=== PATIENT | female | born 1960 | race Caucasian/White ===

== ENCOUNTER 2020-11-18 21:37 | Emergency (ER) | payer MEDICAID, OTHER ==
[~2020-11-18] VITALS: Ht 154.9 cm; Wt 69.4 kg
[~2020-11-18 21:37] MED LIST: CEPH250C16 PO
[2020-11-18 22:07] VITALS: BP 121/77
--- NOTE | 2020-11-18 22:10 | NUR ---
TO LOBBY A/W BED AMBULATORY
--- NOTE | 2020-11-18 22:23 | NUR ---
PT TAKEN TO BED 9
--- NOTE | 2020-11-18 22:25 | NUR ---
Dr. Martinez examining patient.
[2020-11-18] MEDS ORDERED: [UNRECOGNIZED DRUG - CODE] PO (22:28)
--- NOTE | 2020-11-18 22:32 | NUR ---
seen by BENNIE no nursing interventions needed
--- NOTE | 2020-11-18 22:32 | NUR ---
Patient discharged with v/s stable. Written and verbal after care instructions given and explained. Patient alert, oriented and verbalized understanding of instructions. Ambulatory with steady gait. All questions addressed prior to discharge. ID band removed. Patient advised to follow up with PMD. Rx of metformin hcl given. Patient educated on indication of medication including possible reaction and side effects. Opportunity to ask questions provided and answered.
[2020-11-18 22:38] VITALS: BP 121/77
== END 2020-11-18 22:32 | disposition home or self-care (01) ==
LOC: MED 21:37
DX: E11.65 Type 2 diabetes mellitus with hyperglycemia (principal); Z79.84 Long term (current) use of oral hypoglycemic drugs; Z79.899 Other long term (current) drug therapy
CPT/HCPCS: 99283